=== PATIENT | female | born 1955 | race Caucasian/White ===

== ENCOUNTER 2022-01-09 09:25 | Day surgery (SDC) | payer MEDICARE, OTHER ==
[2022-01-05 10:33] VITALS: BMI 30.7
[2022-01-09] MEDS ORDERED: Lidocaine 1% MPF 2 ML VIAL ONE (09:56)
[2022-01-09] MEDS ORDERED: EPINEPHrine 1 MG/ML AMP ONE (12:11)
[2022-01-09] MEDS ORDERED: Bupivacaine PF 0.5% 30 ML VIAL ONE (12:11)
[2022-01-09] MEDS ORDERED: Isosulfan Blue 50 MG/5 ML VIAL ONE (12:11)
[2022-01-09] MEDS ORDERED: Midazolam HCl 2 mg/2 ml Vial ONE (12:19)
[2022-01-09] MEDS ORDERED: HYDROmorphone 0.5 MG/0.5 ML SYRINGE ONE (12:19)
[2022-01-09] MEDS ORDERED: HYDROcodone/Acetaminophen 5/325 mg Tablet PO PRN (14:47)
[2022-01-09] MEDS ORDERED: Acetaminophen 325 MG TAB PO PRN (14:47)
== END 2022-01-09 15:40 | disposition home or self-care (01) ==
LOC: CSHSDC 09:25
PROVIDERS: ATTEND Surgery
DX: D05.12 Intraductal carcinoma in situ of left breast (principal); Z17.0 Estrogen receptor positive status [ER+]; I10 Essential (primary) hypertension; E03.9 Hypothyroidism, unspecified; Z79.899 Other long term (current) drug therapy
CPT/HCPCS: 19301; 38525; 76098; C1713; Q9968; 88307; 88342; J0171; J1170; J2250; J3490; S0020

== ENCOUNTER 2022-02-22 14:22 | Outpatient (CLI) | payer MEDICARE, OTHER | END 2022-02-22 14:23 | disposition home or self-care (01) | LOC: CSHMAMMO 14:22 | PROVIDERS: ATTEND Internal Medicine Hematology & Oncology | DX: Z13.820 Encounter for screening for osteoporosis (principal); C50.812 Malignant neoplasm of overlapping sites of left female breast; T38.6X5A Adverse effect of antigonadotrophins, antiestrogens, antiandrogens, not elsewhere classified, initial encounter | CPT/HCPCS: 77080 ==

== ENCOUNTER 2022-11-22 13:02 | Outpatient (CLI) | payer MEDICARE, OTHER | END 2022-11-22 13:03 | disposition home or self-care (01) | LOC: CSHMAMMO 13:02 | PROVIDERS: ATTEND Surgery | DX: Z08 Encounter for follow-up examination after completed treatment for malignant neoplasm (principal); Z85.3 Personal history of malignant neoplasm of breast | CPT/HCPCS: 77066; G0279 ==